=== PATIENT | female | born 1970 | race Caucasian/White ===

== ENCOUNTER 2018-12-12 16:52 | Inpatient (IN) | payer MEDICAID ==
[~2018-12-12] VITALS: Ht 170.1 cm; Wt 78.6 kg
[~2018-12-12 16:52] MED LIST: CEPHALEXIN500 M1 PO; HYDROCODONE BIT1 T11 PO; MOTRIN600 MG PO; VICODIN 5/500 505 MG PO
[2018-12-12 16:54] VITALS: BP 129/69
[2018-12-12 17:27] LABS: BASO # 0.1 10*3/uL (0.0-0.1); BASO % 0.3 % (0.0-1.0); EOS % 0.2 % (1.0-4.0); HEMATOCRIT 35.7 % (37.0-47.0); HEMOGLOBIN 12.6 g/dl (12.0-16.0); LYMPH # 2.6 10*3/uL (1.3-4.4); LYMPH % 17.4 % (27.0-41.0); MEAN CELL VOLUME 90.8 fl (81.0-99.0); MEAN CORPUSCULAR HGB 32.1 pg (27.0-31.0); MEAN CORPUSCULAR HGB CONC 35.3 g/dl (33.0-37.0); MONO # 0.7 10*3/uL (0.1-1.0); MONO % 4.6 % (3.0-9.0); NEUT # 11.5 10*3/uL (2.3-7.9); NEUT % 77.2 % (47.0-73.0); PLATELET COUNT AUTOMATED 405 10*3/uL (130-400); RED BLOOD COUNT 3.93 10*6/uL (4.10-5.10); RED CELL DISTRI WIDTH 12.8 % (0-14.5); WHITE BLOOD COUNT 14.9 10*3/uL (4.8-10.8)
[2018-12-12 17:41] LABS: ALBUMIN 4.1 gm/dl (3.1-4.5); ALKALINE PHOSPHATASE 90 U/L (45-117); BUN 15 mg/dl (7-24); CHLORIDE 108 mmol/L (98-107); CREATININE 0.76 mg/dL (0.55-1.02); LIPASE 60 U/L (73-393); POTASSIUM 3.5 mmol/L (3.5-5.1); SGOT/AST 16 IU/L (3-35); SGPT/ALT 22 U/L (12-78); SODIUM 140 mmol/L (136-145); TOTAL PROTEIN 7.8 gm/dL (6.4-8.2)
--- NOTE | 2018-12-12 18:34 | NUR ---
Pt sleeping quietly in bed, no distres noted.
--- NOTE | 2018-12-12 19:13 | NUR ---
PT C/O 9/10 PAIN
[2018-12-12 20:21] VITALS: BP 117/73
--- NOTE | 2018-12-12 20:21 | NUR ---
Time: 2020 A 48 year old FEMALE admitted to 5E under services of ALEJANDRO CRISOSTOMO DO. Pt. arrived via ambulatory from ER. Chief complaint: APPENDICITIS. ANNETTE SCHMITT
--- NOTE | 2018-12-12 21:09 | NUR ---
DR GREY AWARE OF CONSULT ACCORDING TO DR GANT. ED HAD CALLED HIM PRIOR TO PATIENT BEING BROUGHT TO FLOOR.
--- NOTE | 2018-12-12 21:09 | NUR ---
PATIENT'S MED REC UP TO DATE. TAKES NO HOME MEDICATIONS. DR STALIN PEÑALOZA.
--- NOTE | 2018-12-12 22:23 | NUR ---
PATIENT RECEIVED A NORCO FOR ABDOMINAL PAIN RATED 8/10. GIVEN WITH A VERY SMALL SIP OF WATER.
[2018-12-13] VITALS (11 sets, daily range): BP systolic 82–121; BP diastolic 44–69
--- NOTE | 2018-12-13 01:26 | NUR ---
PATIENT RECEIVED MORPHINE FOR PAIN IN THE ABDOMEN RATED 8/10.
--- NOTE | 2018-12-13 05:35 | NUR ---
MORPHINE EFFECTIVE FOR PATIENTS PAIN. SLEPT ON AND OFF THROUGHOUT THE NIGHT. NO S/S OF DISTRESS. CALL LIGHT IN REACH.
[2018-12-13 07:47] LABS: BASO % 0.2 % (0.0-1.0); EOS % 0.2 % (1.0-4.0); HEMATOCRIT 33.1 % (37.0-47.0); HEMOGLOBIN 11.2 g/dl (12.0-16.0); LYMPH # 2.4 10*3/uL (1.3-4.4); LYMPH % 13.9 % (27.0-41.0); MEAN CELL VOLUME 93.2 fl (81.0-99.0); MEAN CORPUSCULAR HGB 31.5 pg (27.0-31.0); MEAN CORPUSCULAR HGB CONC 33.8 g/dl (33.0-37.0); MEAN PLATELET VOLUME 9.9 fl (9.6-12.3); MONO # 1.3 10*3/uL (0.1-1.0); MONO % 7.7 % (3.0-9.0); NEUT # 13.1 10*3/uL (2.3-7.9); NEUT % 77.6 % (47.0-73.0); PLATELET COUNT AUTOMATED 335 10*3/uL (130-400); RED BLOOD COUNT 3.55 10*6/uL (4.10-5.10); WHITE BLOOD COUNT 16.9 10*3/uL (4.8-10.8)
[2018-12-13 08:26] LABS: BUN 15 mg/dl (7-24); CHLORIDE 109 mmol/L (98-107); CHOLESTEROL 205 mg/dL (<200); CREATININE 0.76 mg/dL (0.55-1.02); HDL CHOLESTEROL 38 mg/dl (40-60); LDL CHOLESTEROL 140 mg/dL (9-159); PHOSPHOROUS 2.5 mg/dL (2.5-4.9); POTASSIUM 3.6 mmol/L (3.5-5.1); SODIUM 142 mmol/L (136-145); TRIGLYCERIDES 137 mg/dl (<150); VLDL CHOLESTEROL 27 mg/dL (6-40)
[2018-12-13 08:36] LABS: THYROID STIM HORMONE (HS) 0.419 uIU/ml (0.358-4.75)
--- NOTE | 2018-12-13 09:18 | NUR ---
MEDICATED WITH PRN IV MORPHINE FOR MID TO RIGHT SIDE ABDOMINAL PAIN AND ALSO IV ZOFRAN FOR NAUSEA.
--- NOTE | 2018-12-13 09:57 | NUR ---
MEDICATED WITH IV DILAUDID X 1 ORDERED FOR PAIN NOT RELIEVED BY PRN MORPHINE EARLIER.
--- NOTE | 2018-12-13 11:47 | NUR ---
DR. GREY CALLED; PER MD PATIENT IS FOR AN APPENDECTOMY SOON SURGICAL TEAM IS READY. PATIENT AND FAMILY NOTIFIED AND PREOP QUESTIONNAIRE COMPLETED.
[2018-12-13 12:08] LABS: BILIRUBIN NEGATIVE (NEGATIVE); BLOOD 1+ (NEGATIVE); CLARITY SL CLOUDY (CLEAR); COLOR YELLOW (YELLOW); GLUCOSE NEGATIVE (NEGATIVE); KETONE TRACE (NEGATIVE); LEUKO ESTERASE NEGATIVE (NEGATIVE); NITRITE NEGATIVE (NEGATIVE); PH 6.5 (5.0-9.0); UROBILINOGEN 0.2 E.U./dl (0.2-1.0)
[2018-12-13 12:20] LABS: BACTERIA 1+; RBC 21-30 rbc/hpf (0-2)
--- NOTE | 2018-12-13 12:33 | NUR ---
Office Automation Clerk in to talk to patient. Patient states lives at HOME with ROBSON. There are FEW steps in the home. Physician: NONE Pharmacy: [facility] Home health services: NONE Patient's level of ADLs:INDEPENDENT Patient has working utilities: YES DME: NONE Follow-up physician's appointment after d/c: WILL FIND ONE AND MAKE APPOINTMENT AFTER DISCHARGE Does patient want to access PORTAL?: NO Discharge plan PT LIVES AT HOME WITH HER BOYFRIEND AND IS INDEPENDENT IN HER CARE. DENIES ANY NEEDS ON DISCHARGE. WILL CONTINUE TO FOLLOW. STATES SHE WILL HAVE A RIDE HOME.. AMARILIS HANDY
--- NOTE | 2018-12-13 13:08 | NUR ---
MEDICATED WITH PRN IV MORPHINE FOR HEAD PAIN AT THIS TIME; PATIENT REMAINS NPO FOR APPENDECTOMY PROCEDURE THIS AFTERNOON.
--- NOTE | 2018-12-13 13:24 | NUR ---
PRN IV MORPHINE NOT EFFECTIVE FOR HEADACHE, PER PATIENT.
--- NOTE | 2018-12-13 14:02 | NUR ---
PATIENT TO OR BY BED FOR SURGICAL PROCEDURE.
--- NOTE | 2018-12-13 18:50 | NUR ---
PATIENT RETURNED FROM OR PROCEDURE, IS VISITING WITH FAMILY.
--- NOTE | 2018-12-13 20:00 | NUR ---
RESTING IN BED WITH EYES CLOSED. 02 INTACT AT 2LPM VIA NASAL CANNULA; PULSE OX 93%. PT. VOICES NO C/O AT THIS TIME. NO DISTRESS NOTED. CALL LIGHT WITHIN REACH.
[2018-12-14] VITALS (10 sets, daily range): BP systolic 78–95; BP diastolic 46–57
--- NOTE | 2018-12-14 00:10 | NUR ---
CALLED DR. GANT PERTAINING TO PT'S LOW BP; STATES TO HOLD PAIN MEDICATIONS FOR NOW.
--- NOTE | 2018-12-14 03:00 | NUR ---
PT. REQUESTING PAIN MEDICATION; INFORMED PATIENT THAT PAIN MEDICATION WAS ON HOLD DUE TO HER BLOOD PRESSURE BEING LOW. PT.'S PULSE OX 89-90% WITHOUT O2. 02 REAPPLIED AT 3.5 LITERS & PULSE OX 94%. PT. ENCOURAGED TO TAKE DEEP BREATHS. ALSO INSTRUCTED ON COUGHING, DEEP BREATHING & SPLINTING INCISION WHILE DOING SO. PT. VERBALIZED UNDERSTANDING. PT. HAS BEEN UP AMBULATING IN THE ROOM TO THE BATHROOM SEVERAL TIMES THROUGHOUT THE SHIFT. TOLERATED WELL. WILL CONTINUE TO MONITOR. CALL LIGHT WITHIN REACH.
--- NOTE | 2018-12-14 06:00 | NUR ---
RESTING IN BED WITH EYES CLOSED. VOICES NO C/O AT THIS TIME. 02 INTACT. CALL LIGHT WITHIN REACH.
[2018-12-14 06:28] LABS: BASO % 0.1 % (0.0-1.0); HEMATOCRIT 30.2 % (37.0-47.0); HEMOGLOBIN 9.9 g/dl (12.0-16.0); LYMPH # 1.6 10*3/uL (1.3-4.4); LYMPH % 8.2 % (27.0-41.0); MEAN CORPUSCULAR HGB 31.6 pg (27.0-31.0); MEAN CORPUSCULAR HGB CONC 32.8 g/dl (33.0-37.0); MEAN PLATELET VOLUME 10.5 fl (9.6-12.3); MONO # 1.1 10*3/uL (0.1-1.0); MONO % 5.6 % (3.0-9.0); NEUT # 16.6 10*3/uL (2.3-7.9); NEUT % 85.6 % (47.0-73.0); PLATELET COUNT AUTOMATED 305 10*3/uL (130-400); RED BLOOD COUNT 3.13 10*6/uL (4.10-5.10); RED CELL DISTRI WIDTH 13.2 % (0-14.5); WHITE BLOOD COUNT 19.4 10*3/uL (4.8-10.8)
[2018-12-14 06:30] LABS: BUN 13 mg/dl (7-24); CHLORIDE 108 mmol/L (98-107); CREATININE 0.71 mg/dL (0.55-1.02); POTASSIUM 3.9 mmol/L (3.5-5.1); SODIUM 141 mmol/L (136-145)
[2018-12-14 06:37] LABS: MEAN CELL VOLUME 96.5 fl (81.0-99.0)
--- NOTE | 2018-12-14 12:07 | NUR ---
PT DENIES HOME NEEDS ON DISCHARGE. WILL CONTINUE TO FOLLOW.
[2018-12-14] MEDS ORDERED: AUGMENTIN 875875 MG PO (16:06)
[2018-12-14] MEDS ORDERED: HYDROCODONE-AC1 EAC1 PO (16:06)
--- NOTE | 2018-12-14 19:00 | NUR ---
PT IS LYING IN BED WITH C/O OF MILD PAIN AT THIS TIME. DENIES THE NEED FOR ANY MEDICATION AT THIS TIME. NO S/S OF DISTRESS NOTED. RESPIRATIONS EASY AND NONLABORED. CALL LIGHT WITHIN REACH, WILL CONTINUE TO MONITOR.
--- NOTE | 2018-12-14 20:33 | NUR ---
24 HR CHART CHECK COMPLETE.
[2018-12-15] VITALS: BP 94/59
[2018-12-15 06:32] LABS: HEMATOCRIT 28.6 % (37.0-47.0); HEMOGLOBIN 9.4 g/dl (12.0-16.0); MEAN CELL VOLUME 95.7 fl (81.0-99.0); MEAN CORPUSCULAR HGB 31.4 pg (27.0-31.0); MEAN CORPUSCULAR HGB CONC 32.9 g/dl (33.0-37.0); MEAN PLATELET VOLUME 10.3 fl (9.6-12.3); PLATELET COUNT AUTOMATED 304 10*3/uL (130-400); RED BLOOD COUNT 2.99 10*6/uL (4.10-5.10); RED CELL DISTRI WIDTH 13.2 % (0-14.5)
[2018-12-15 06:52] LABS: BUN 15 mg/dl (7-24); CHLORIDE 109 mmol/L (98-107); CREATININE 0.79 mg/dL (0.55-1.02); POTASSIUM 3.4 mmol/L (3.5-5.1); SODIUM 144 mmol/L (136-145)
[2018-12-15 06:55] LABS: BASOPHILS 1 % (0-1); PLATELET SUFFICIENCY NORMAL (NORMAL); TOTAL CELLS COUNTED 100 #CELLS
[2018-12-15 08:00] VITALS: BP 109/62
--- NOTE | 2018-12-15 10:38 | NUR ---
PT DENIES NEEDS AT HOME. CAN BE DISCHARGED TO HOME WHEN MEDICALLY STABLE. WILL CONTINUE TO FOLLOW.
[2018-12-15] MEDS ORDERED: AUGMENTIN 875-875 MG PO (11:40)
[2018-12-15] MEDS ORDERED: NORCO 5-325 TA1 EACH PO (11:40)
[2018-12-15 12:00] VITALS: BP 106/67
--- NOTE | 2018-12-15 13:21 | NUR ---
Discharge instructions reviewed with patient/family. Patient receptive and verbalizes understanding. Follow-up care arranged. Written instructions given to patient/family. PATIENT DISCHARGED TO [facility], AMBULAT[facility], FOR TRANSPORT HOME BY PRIVATE VEHICLE WITH HER BOYFRIEND. NISHANT SCOTT
== END 2018-12-15 13:21 | disposition home or self-care (01) | DRG 343 ==
LOC: ED 16:52 → EDHOLD 19:05 → 5E 19:05
PROVIDERS: Family Medicine; Internal Medicine; Nurse Practitioner Family; ADMIT Internal Medicine
PROC: 0DTJ4ZZ Resection of Appendix, Percutaneous Endoscopic Approach (ICD-10-PCS; principal; 2018-12-13)
DX: K35.890 Other acute appendicitis without perforation or gangrene (principal); K52.9 Noninfective gastroenteritis and colitis, unspecified; D72.829 Elevated white blood cell count, unspecified; D47.3 Essential (hemorrhagic) thrombocythemia; R73.9 Hyperglycemia, unspecified; F17.200 Nicotine dependence, unspecified, uncomplicated; E87.8 Other disorders of electrolyte and fluid balance, not elsewhere classified; E78.00 Pure hypercholesterolemia, unspecified; Z87.81 Personal history of (healed) traumatic fracture; Z80.8 Family history of malignant neoplasm of other organs or systems; Z83.3 Family history of diabetes mellitus; Z72.89 Other problems related to lifestyle